=== PATIENT | female | born 1995 | race American Indian/Alaskan Native ===

== ENCOUNTER 2017-07-26 14:16 | Inpatient (IN) | payer MEDICAID, OTHER ==
[2017-07-26 15:39] LABS: BASO % 0.5 % (0.0-2.0); EOS # 0.1 K/uL (0.0-0.7); EOS % 1.1 % (0.0-4.0); HEMOGLOBIN 11.4 g/dL (11.0-16.0); LYMPH # 1.7 K/uL (1.0-4.3); MEAN CELL VOLUME 73.9 fL (81.0-99.0); MEAN CORPUSCULAR HEMOGLOBIN 24.2 pg (27.0-31.0); MEAN CORPUSCULAR HGB CONC 32.8 g/dL (33.0-37.0); MEAN PLATELET VOLUME 8.3 fL (7.2-11.7); MONO # 0.9 K/uL (0.0-0.8); MONO % 10.8 % (0.0-10.0); NEUT # 5.3 K/uL (1.8-7.0); NEUT % 66.6 % (50.0-75.0); NRBC % 0.1 % (0.0-2.0); RBC 4.71 Mil/uL (3.80-5.20); RED CELL DISTRIBUTION WIDTH 13.2 % (11.5-14.5); WHITE BLOOD COUNT 7.9 K/uL (4.8-10.8)
[2017-07-26] MEDS ORDERED: Sodium Chloride 0.9% 1,000 ML IV ONE (15:43)
[2017-07-26 15:49] LABS: HCG,QUALITATIVE URINE POSITIVE (NEGATIVE)
--- NOTE | 2017-07-26 15:52 | C.PDOC ---
History Of Present Illness 22 yr old female presents to the ER stating she took a home test which resulted positive. Patient report she missed her June period. Patient reports of cramping and spotting earlier. Denies fever, chills, nausea, vomiting , dysuria, back pain, headache, weakness or numbness. By date patient is approximately 6 weeks . Time Seen by Provider: 07/26/17 14:40 Chief Complaint (Nursing): Female Genitourinary History Per: Patient History/Exam Limitations: no limitations Onset/Duration Of Symptoms: Days Past Medical History Reviewed: Historical Data, Nursing Documentation, Vital Signs Vital Signs: Last Vital Signs Temp 98.6 F 07/26/17 14:25 Pulse 95 H 07/26/17 14:25 Resp 18 07/26/17 14:25 BP 116/74 07/26/17 14:25 Pulse Ox 99 07/26/17 15:56 Family History: States: No Known Family Hx - Social History Hx Alcohol Use: Yes Hx Substance Use: No - Immunization History Hx Tetanus Toxoid Vaccination: No Hx Influenza Vaccination: No Hx Pneumococcal Vaccination: No Review Of Systems Except As Marked, All Systems Reviewed And Found Negative. Constitutional: Negative for: Fever, Chills Gastrointestinal: Positive for: Abdominal Pain (cramping). Negative for: Nausea , Vomiting Genitourinary: Positive for: Vaginal Bleeding (spotting). Negative for: Dysuria Musculoskeletal: Negative for: Back Pain Neurological: Negative for: Weakness, Numbness, Headache Physical Exam - Physical Exam Appears: Non-toxic, No Acute Distress Skin: Warm, Dry, No Rash Head: Atraumatic, Normacephalic Eye(s): bilateral: Normal Inspection, PERRL, EOMI Oral Mucosa: Moist Cardiovascular: Rhythm Regular, No Murmur Respiratory: Normal Breath Sounds, No Rales, No Rhonchi, No Stridor, No Wheezing Gastrointestinal/Abdominal: Normal Exam, Soft, No Tenderness, No Guarding, No Rebound Extremity: Normal ROM, No Swelling Neurological/Psych: Oriented x3, Normal Speech, Normal Motor ED Course And Treatment - Laboratory Results Result Diagrams: 07/26/17 15:30 07/26/17 15:01 O2 Sat by Pulse Oximetry: 99 (RA) Pulse Ox Interpretation: Normal Medical Decision Making Medical Decision Making: PLAN: * US - Transvaginal * CBC * CMP * HCG * Urinalysis * Sodium Chloride IV Disposition Counseled Patient/Family Regarding: Studies Performed, Diagnosis - Disposition Disposition: HOME/ ROUTINE Disposition Time: 17:37 Condition: STABLE Instructions: Threatened Miscarriage (ED) Forms: [facility] (Iranian), General Discharge Instructions - POA Present On Arrival: None - Clinical Impression Clinical Impression: Threatened - Scribe Statement The provider has reviewed the documentation as recorded by the Scribe Елена Hernandez Provider Attestation: All medical record entries made by the Betsyibe were at my direction and personally dictated by me. I have reviewed the chart and agree that the record accurately reflects my personal performance of the history, physical exam, medical decision making, and the department course for this patient. I have also personally directed, reviewed, and agree with the discharge instructions and disposition. Physician Patient Turnover Patient Signed Over To: Riki Choudhary Handoff Comments: pending US results
[2017-07-26 15:57] LABS: SQUAMOUS EPITHIAL 4 /hpf (0-5); URINE BACTERIA RARE (<OCC); URINE BILIRUBIN NEGATIVE (NEGATIVE); URINE BLOOD 1+ (NEGATIVE); URINE CLARITY Clear (Clear); URINE COLOR Yellow (YELLOW); URINE GLUCOSE (UA) NORMAL (Normal); URINE LEUKOCYTE ESTERASE 1+ Leu/uL (Negative); URINE NITRATE NEGATIVE (NEGATIVE); URINE PROTEIN NEGATIVE (NEGATIVE); URINE UROBILINOGEN NORMAL mg/dL (0.2-1.0)
[2017-07-26 16:02] LABS: ALB/GLOB RATIO 1.1 (1.0-2.1); ALBUMIN 4.1 g/dL (3.5-5.0); ALT/SGPT 18 U/L (9-52); AST/SGOT 37 U/L (14-36); BLOOD UREA NITROGEN 10 mg/dL (7-17); CALCIUM 8.4 mg/dl (8.6-10.4); GFR AFRICAN-AMERICAN > 60; GFR NON-AFRICAN AMERICAN > 60
--- NOTE | 2017-07-26 17:57 | US ---
Indication: , 6 weeks and spotting Technique: A real-time transabdominal pelvic ultrasound was performed. In addition, a transvaginal pelvic ultrasound was necessary to better depict pelvic anatomy. Comparison: None available. Findings: The uterus measures approximately 7.8 x 4.2 x 4.8 cm. Anteverted. Endometrium measures approximately 2.2 cm containing heterogeneous hypo echogenicity possibly debris/ blood products. An intrauterine gestational sac is not identified. Suspected ectopic in the right adnexal region with evidence of yolk sac measuring approximately 3 mm. [place]-rump length approximately 0.4 cm consistent with gestational age 6 weeks 0 days. Gestational sac measurement 1.4 cm consistent with 5 weeks 4 days. heart rate measures approximately 131.2 beats per minute. The right ovary measures approximately 2.9 x 2.1 x 3.0 cm. The left ovary measures approximately 3.5 x 2.6 x 2.8 cm and contains evidence of corpus luteal cyst measuring approximately 2.2 x 1.6 x 1.9 cm. Blood flow is demonstrated to the left ovary. Small pelvic free fluid with evidence of internal echoes. Impression: Suspected ectopic in the right adnexal region with evidence of yolk sac measuring approximately 3 mm. [place]-rump length approximately 0.4 cm consistent with gestational age 6 weeks 0 days. Gestational sac measurement 1.4 cm consistent with 5 weeks 4 days. heart rate measures approximately 131.2 beats per minute. Correlate clinically. Thickened endometrium with evidence of heterogeneous hypo echogenicity possibly debris/blood products. An intrauterine gestational sac is not identified. Probable 2.2 cm left ovarian corpus luteal cyst. Small pelvic free fluid with evidence of internal echoes. Findings discussed with Dr. Choudhary on 07/26/17 at 5:52 p.m.
[2017-07-26 18:29] VITALS: O2SAT 100
[2017-07-26] MEDS ORDERED: Lactated Ringer's 1,000 ML ONE (19:37)
[2017-07-26] MEDS ORDERED: Lactated Ringer's 1,000 ML IV SCH (19:45)
[2017-07-26] MEDS ORDERED: cefOXitin IV 2 gm in Saline 2 GM in Sodium Chloride 0.9% 50 ML IV SCH (19:45)
--- NOTE | 2017-07-26 19:45 | CP.PCM.HP ---
History of Present Illness - History of Present Illness History of Present Illness: 22 y.o. , LMP end 05/2017, c/o generalized lower abdominal pain, crampy "like my period", onset 07/25/17. Worsening overnight until earlier today, pain scale 8/10 prompted her to come to E.D. for evaluation. In E.D. ultrasound performed revealed yolk sac 3 mm (+) FP wit CRL c/w 6w 0d and gestationsal sac c /w 5w4d; (+) cardiac activity 132 bpm. quant HCG 20,063 IU; (+) free fluid. Currently, patient reports pain is no worse. 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 (+) h/o chlamydia 2010. Denies H/O myoma or abnormal Pap PMH: denies PSH: denies NKDA Meds: none Soc Hx: (+) Black 'n mild - 2/day; (+) marijuana - 2/day; very occ EtOH. Lives with her mother; currently unemployed - last worked 05/2017 Fam Hx: Mother alive 46 - mild HTN. Father alive 47 - DM. No fam h/o cancer Present on Admission - Present on Admission Any Indicators Present on Admission: No Review of Systems - Review of Systems All systems: reviewed and no additional remarkable complaints except - Genitourinary Genitourinary: As Per HPI - Menstruation Menstruation: As Per HPI Past Patient History - Infectious Disease Hx of Infectious Diseases: None - Tetanus Immunizations Tetanus Immunization: Unknown - Past Social History Smoking Status: Light Smoker < 10 Cigarettes Daily Alcohol: Occasional Home Situation {Lives}: With Family Domestic Violence: Negative - CARDIAC Hx Cardiac Disorders: No - PULMONARY Hx Respiratory Disorders: No - NEUROLOGICAL Hx Neurological Disorder: No - HEENT Hx HEENT Problems: No - RENAL Hx Chronic Kidney Disease: No - ENDOCRINE/METABOLIC Hx Endocrine Disorders: No - HEMATOLOGICAL/ONCOLOGICAL Hx Blood Disorders: No - INTEGUMENTARY Hx Dermatological Problems: No - MUSCULOSKELETAL/RHEUMATOLOGICAL Hx Musculoskeletal Disorders: No - GASTROINTESTINAL Hx Gastrointestinal Disorders: No - GENITOURINARY/GYNECOLOGICAL Hx Sexually Transmitted Disorders: Yes ( chlamydia) LMP:: 05/2017 : 1 Para: 0 Termination of : 0 - PSYCHIATRIC Hx Psychophysiologic Disorder: No Hx Substance Use: No - SURGICAL HISTORY Hx Surgeries: No - ANESTHESIA Hx Anesthesia: No Meds Allergies/Adverse Reactions: Allergies Allergy/AdvReac Type Severity Reaction Status Date / Time No Known Allergies Allergy Verified 07/26/17 14:28 Physical Exam - Constitutional Appears: Well, Non-toxic, No Acute Distress - Head Exam Head Exam: NORMOCEPHALIC - Eye Exam Eye Exam: Normal appearance - Neck Exam Neck exam: Positive for: Full Rom - Respiratory Exam Respiratory Exam: NORMAL BREATHING PATTERN - Cardiovascular Exam Cardiovascular Exam: REGULAR RHYTHM - GI/Abdominal Exam GI & Abdominal Exam: Soft ((+) RLQ tenderness to palpation, no rebound tenderness or guarding) - Extremities Exam Extremities exam: Positive for: full ROM, normal inspection - Neurological Exam Neurological exam: Alert, Normal Gait, Oriented x3 - Psychiatric Exam Psychiatric exam: Normal Affect, Normal Mood - Skin Skin Exam: Dry Results - Vital Signs Recent Vital Signs: Last Vital Signs Temp 97.9 F 07/26/17 18:28 Pulse 93 H 07/26/17 18:28 Resp 18 07/26/17 18:28 BP 103/65 07/26/17 18:28 Pulse Ox 100 07/26/17 18:28 - Labs Result Diagrams: 07/26/17 15:30 07/26/17 15:01 Labs: Laboratory Results - last 24 hr 07/26/17 07/26/17 07/26/17 15:01 15:30 15:30 WBC 7.9 RBC 4.71 Hgb 11.4 Hct 34.8 MCV 73.9 L MCH 24.2 L MCHC 32.8 L RDW 13.2 Plt Count 360 MPV 8.3 Neut % (Auto) 66.6 Lymph % (Auto) 21.0 [place] % (Auto) 10.8 H Eos % (Auto) 1.1 Baso % (Auto) 0.5 Neut # 5.3 Lymph # 1.7 [place] # 0.9 H Eos # 0.1 Baso # 0.0 Sodium 130 L Potassium 3.5 L Chloride 101 Carbon Dioxide 22 Anion Gap 11 BUN 10 Creatinine 0.6 L Est GFR ( Amer) > 60 Est GFR (Non-Af Amer) > 60 Random Glucose 84 Calcium 8.4 L Total Bilirubin 0.5 AST 37 H ALT 18 Alkaline Phosphatase 45 Total Protein 7.7 Albumin 4.1 Globulin 3.7 Albumin/Globulin Ratio 1.1 Beta HCG, Quant Urine Color Yellow Urine Clarity Clear Urine pH 6.0 Ur Specific [place] 1.025 Urine Protein Negative Urine Glucose (UA) Normal Urine Ketones Negative Urine Blood 1+ H Urine Nitrate Negative Urine Bilirubin Negative Urine Urobilinogen Normal Ur Leukocyte Esterase 1+ H Urine WBC (Auto) 9 H Urine RBC (Auto) 5 H Ur Squamous Epith Cells 4 Urine Bacteria Rare Urine HCG, Qual Positive Blood Type Antibody Screen 07/26/17 07/26/17 15:30 17:54 WBC RBC Hgb Hct MCV MCH MCHC RDW Plt Count MPV Neut % (Auto) Lymph % (Auto) [place] % (Auto) Eos % (Auto) Baso % (Auto) Neut # Lymph # [place] # Eos # Baso # Sodium Potassium Chloride Carbon Dioxide Anion Gap BUN Creatinine Est GFR ( Amer) Est GFR (Non-Af Amer) Random Glucose Calcium Total Bilirubin AST ALT Alkaline Phosphatase Total Protein Albumin Globulin Albumin/Globulin Ratio Beta HCG, Quant . Urine Color Urine Clarity Urine pH Ur Specific [place] Urine Protein Urine Glucose (UA) Urine Ketones Urine Blood Urine Nitrate Urine Bilirubin Urine Urobilinogen Ur Leukocyte Esterase Urine WBC (Auto) Urine RBC (Auto) Ur Squamous Epith Cells Urine Bacteria Urine HCG, Qual Blood Type B POSITIVE Antibody Screen Negative Assessment & Plan - Assessment and Plan (Free Text) Assessment: 22 y.o P0, right ectopic - not a candidate for methotrexate ((+) cardiac activity, HGC > 15,000 IU). To this end D/W patient surgical management : laparoscopy versus laparotomy, with possible removal of fallopian tube. R/C discussed. Patient expressed an understanding and agrees. No questions offered. Consents signed, dated, witnessed, and placed in chart. Patient ate beef sausage between 1530 and 1600 hours. Patient otherwise in stable condition. 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 - Date & Time Date: 07/26/17 Time: 19:54
[2017-07-26] MEDS ORDERED: cefOXitin IV 1 gm in Dextrose 0 GM/0 ML BAG IVPB ONE (19:51)
[2017-07-26] MEDS ORDERED: Bupivacaine HCl 0.25% PF (10 ml) Inj ONE (19:52)
[2017-07-26] MEDS ORDERED: Lidocaine 1% Inj (20ml) ONE (19:52)
[2017-07-26] MEDS: cefOXitin IV 2 gm in Saline 2 GM in Sodium Chloride 0.9% 100 ML IV SCH (19:52)
[2017-07-26] MEDS ORDERED: Midazolam 2 MG/2 ML VIAL ONE (20:17)
[2017-07-26] MEDS ORDERED: Succinylcholine Chloride 20 mg/ml Syr (5 ml) IV ONE (20:18)
[2017-07-26] MEDS ORDERED: Rocuronium 10 mg/ml (5 ml) ONE (20:18)
[2017-07-26] MEDS ORDERED: Propofol 10 mg/ml Inj (20 ML) ONE (20:20)
[2017-07-26] MEDS ORDERED: Lactated Ringer's 1,000 ML IV ONE ×4 (20:30→23:30)
[2017-07-26] MEDS ORDERED: Neostigmine Methylsulfate 3mg/3ml Syringe IV ONE (21:47)
[2017-07-26] MEDS ORDERED: Oxycodone/Acetaminophen 5/325 mg Tab PO PRN (22:27)
--- NOTE | 2017-07-26 22:43 | PCM.SURG1 ---
Surgeon's Initial Post Op Note - Surgeon's Notes Surgeon: Chasity Santos MD Retail Associate Manager Bilingual: Terrell Hopper MD Type of Anesthesia: General Endo Anesthesia Administered By: Kerrie Merida MD Pre-Operative Diagnosis: right ectopic Operative Findings: EUA: small AV uterus; no adnexal masses appreciated. At laparoscopy: normal uterus; normal left fallopian; normal ovaries bilaterally. Approx 100cc hemoperitoneum; no active bleeding. Right ectopic . Multiple pelvic adhesions: involving left fallopian tube; posterior aspect of uterus to cul-de-sac; and loops of bowel to left lateral abdominal wall. Powder burn endometriotic spots primarily on left lateral abdominal wall. Post-Operative Diagnosis: Same; pelvic adhesions; endometriosis Operation Performed: Right salpingectomy Specimen/Specimens Removed: Right fallopian tube Estimated Blood Loss: EBL {In ML}: 100 (U.O. 100 mL; IVFs 1,450 mL LR) Blood Products Given: N/A Drains Used: No Drains Date of Surgery/Procedure: 07/26/17 Time of Surgery/Procedure: 22:44
[2017-07-27] MEDS: cefOXitin IV 2 gm in Saline 2 GM in Sodium Chloride 0.9% 100 ML IV SCH (04:12)
[2017-07-27 07:39] LABS: BASO % 0.3 % (0.0-2.0); HEMOGLOBIN 10.6 g/dL (11.0-16.0); LYMPH # 0.8 K/uL (1.0-4.3); LYMPH % 7.2 % (20.0-40.0); MEAN CELL VOLUME 73.7 fL (81.0-99.0); MEAN CORPUSCULAR HGB CONC 32.6 g/dL (33.0-37.0); MEAN PLATELET VOLUME 8.8 fL (7.2-11.7); MONO # 0.2 K/uL (0.0-0.8); MONO % 1.7 % (0.0-10.0); NEUT % 90.8 % (50.0-75.0); PLATELET COUNT 324 K/uL (130-400); RBC 4.42 Mil/uL (3.80-5.20); RED CELL DISTRIBUTION WIDTH 13.6 % (11.5-14.5)
--- NOTE | 2017-07-27 07:57 | CP.PCM.DIS ---
Provider - Provider Date of Admission: 07/26/17 18:09 Attending physician: Chasity Santos MD Time Spent in preparation of Discharge (in minutes): 15 Diagnosis - Discharge Diagnosis (1) Ectopic Status: Acute Hospital Course - Lab Results Lab Results: Most Recent Lab Values WBC 7.9 K/uL (4.8-10.8) 07/26/17 15:30 RBC 4.71 Mil/uL (3.80-5.20) 07/26/17 15:30 Hgb 11.4 g/dL (11.0-16.0) 07/26/17 15:30 Hct 34.8 % (34.0-47.0) 07/26/17 15:30 MCV 73.9 fL (81.0-99.0) L 07/26/17 15:30 MCH 24.2 pg (27.0-31.0) L 07/26/17 15:30 MCHC 32.8 g/dL (33.0-37.0) L 07/26/17 15:30 RDW 13.2 % (11.5-14.5) 07/26/17 15:30 Plt Count 360 K/uL (130-400) 07/26/17 15:30 MPV 8.3 fL (7.2-11.7) 07/26/17 15:30 Neut % (Auto) 66.6 % (50.0-75.0) 07/26/17 15:30 Lymph % (Auto) 21.0 % (20.0-40.0) 07/26/17 15:30 [place] % (Auto) 10.8 % (0.0-10.0) H 07/26/17 15:30 Eos % (Auto) 1.1 % (0.0-4.0) 07/26/17 15:30 Baso % (Auto) 0.5 % (0.0-2.0) 07/26/17 15:30 Neut # 5.3 K/uL (1.8-7.0) 07/26/17 15:30 Lymph # 1.7 K/uL (1.0-4.3) 07/26/17 15:30 [place] # 0.9 K/uL (0.0-0.8) H 07/26/17 15:30 Eos # 0.1 K/uL (0.0-0.7) 07/26/17 15:30 Baso # 0.0 K/uL (0.0-0.2) 07/26/17 15:30 Sodium 130 mmol/L (132-148) L 07/26/17 15:01 Potassium 3.5 mmol/L (3.6-5.2) L 07/26/17 15:01 Chloride 101 mmol/L (98-107) 07/26/17 15:01 Carbon Dioxide 22 mmol/L (22-30) 07/26/17 15:01 Anion Gap 11 (10-20) 07/26/17 15:01 BUN 10 mg/dL (7-17) 07/26/17 15:01 Creatinine 0.6 mg/dL (0.7-1.2) L 07/26/17 15:01 Est GFR ( Amer) > 60 07/26/17 15:01 Est GFR (Non-Af Amer) > 60 07/26/17 15:01 POC Glucose (mg/dL) 85 mg/dL (65-110) 07/26/17 19:47 Random Glucose 84 mg/dL (65-105) 07/26/17 15:01 Calcium 8.4 mg/dl (8.6-10.4) L 07/26/17 15:01 Total Bilirubin 0.5 mg/dL (0.2-1.3) 07/26/17 15:01 AST 37 U/L (14-36) H 07/26/17 15:01 ALT 18 U/L (9-52) 07/26/17 15:01 Alkaline Phosphatase 45 U/L (38-126) 07/26/17 15:01 Total Protein 7.7 g/dL (6.3-8.3) 07/26/17 15:01 Albumin 4.1 g/dL (3.5-5.0) 07/26/17 15:01 Globulin 3.7 gm/dL (2.2-3.9) 07/26/17 15:01 Albumin/Globulin Ratio 1.1 (1.0-2.1) 07/26/17 15:01 Beta HCG, Quant 57567.00 mIU/ML 07/26/17 15:30 Urine Color Yellow (YELLOW) 07/26/17 15:30 Urine Clarity Clear (Clear) 07/26/17 15:30 Urine pH 6.0 (5.0-8.0) 07/26/17 15:30 Ur Specific [place] 1.025 (1.003-1.030) 07/26/17 15:30 Urine Protein Negative mg/dL (NEGATIVE) 07/26/17 15:30 Urine Glucose (UA) Normal mg/dL (Normal) 07/26/17 15:30 Urine Ketones Negative mg/dL (NEGATIVE) 07/26/17 15:30 Urine Blood 1+ (NEGATIVE) H 07/26/17 15:30 Urine Nitrate Negative (NEGATIVE) 07/26/17 15:30 Urine Bilirubin Negative (NEGATIVE) 07/26/17 15:30 Urine Urobilinogen Normal mg/dL (0.2-1.0) 07/26/17 15:30 Ur Leukocyte Esterase 1+ [place]/uL (Negative) H 07/26/17 15:30 Urine WBC (Auto) 9 /hpf (0-5) H 07/26/17 15:30 Urine RBC (Auto) 5 /hpf (0-3) H 07/26/17 15:30 Ur Squamous Epith Cells 4 /hpf (0-5) 07/26/17 15:30 Urine Bacteria Rare (<OCC) 07/26/17 15:30 Urine HCG, Qual Positive (NEGATIVE) 07/26/17 15:30 Blood Type B POSITIVE 07/26/17 17:54 Antibody Screen Negative 07/26/17 17:54 - Hospital Course Hospital Course: Patient presents to er with abdominal pain.Found to have an ectopc on right side.Ptaient taken to the OR by Dr santos and underwent laparsocopic right salpingectomy Her post op course was uncomplicated Shew as discharge on post op day 1 patient advsied to follow up in clinic in 2 weeks Discharge Exam - Head Exam Head Exam: NORMOCEPHALIC - Respiratory Exam Respiratory Exam: Clear to PA & Lateral, NORMAL BREATHING PATTERN - Cardiovascular Exam Cardiovascular Exam: REGULAR RHYTHM - GI/Abdominal Exam GI & Abdominal Exam: Normal Bowel Sounds, Soft. absent: Rebound - Back Exam Back exam: absent: CVA tenderness (L), CVA tenderness (R) - Psychiatric Exam Psychiatric exam: Normal Affect, Normal Mood - Skin Skin Exam: Normal Color Discharge Plan - Discharge Medications Prescriptions: Ibuprofen [Motrin Tab] 600 mg PO Q6 PRN #30 tab PRN Reason: Pain, Mild (1-3) oxyCODONE/Acetaminophen [Percocet 5/325 mg Tab] 1 tab PO Q4H PRN #10 tab PRN Reason: Pain, Moderate (4-7) - Follow Up Plan Condition: STABLE Disposition: HOME/ ROUTINE Instructions: Salpingectomy (GEN)
[2017-07-27 09:10] LABS: LYMPHOCYTE 10 % (20-40); MONOCYTE 2 % (0-10); NEUTROPHIL 88 % (50-75); PLATELET ESTIMATE NORMAL (NORMAL); TOTAL CELLS COUNTED 100
[2017-07-27 09:11] LABS: HYPOCHROMIC SLIGHT; OVALOCYTES SLIGHT
[2017-07-27] MEDS ORDERED: Simethicone 80 mg Chewtab PO SCH (10:00)
[2017-07-27 10:04] VITALS: BP 91/64; PULSE 86; RESP 18; TEMP 97.4
--- NOTE | 2017-07-27 11:05 | OP ---
PROCEDURE DATE: 07/26/2017 SURGEON: Chasity Santos MD HADOOP ENGINEER: Terrell Hopper MD ANESTHESIOLOGIST: Kerrie Merida MD ANESTHESIA TYPE: General with endotracheal intubation. PREOPERATIVE DIAGNOSIS: Right ectopic . POSTOPERATIVE DIAGNOSES: Right ectopic , pelvic adhesions. OPERATIVE FINDINGS: 1. Examination under anesthesia revealed a small anteverted uterus with no adnexal masses appreciated. 2. At laparoscopy, normal uterus, normal left fallopian tube, normal ovaries bilaterally and a right ectopic encompassing from the area of the ampullary region through the distal end of the right fallopian tube. Multiple pelvic adhesions involving the left fallopian tube encasing the left ovary in some of these adhesions involving also the posterior aspect of the uterus to the cul-de-sac and involving aspects of the loops of bowel to the left lateral anterior wall. There is right ectopic as described above, approximate 100 mL hemoperitoneum with no active bleeding noted. OPERATION PERFORMED: Right salpingectomy. SPECIMEN REMOVED: Right fallopian tube. ESTIMATED BLOOD LOSS: 100 mL. URINE OUTPUT: 100 mL. INTRAVENOUS FLUIDS: 1400 mL of lactated Ringer's. Patient received Mefoxin 2 g. COMPLICATIONS: None. DESCRIPTION OF PROCEDURE: The patient was taken to the operating room after having obtained informed consent for the anticipated procedure. This included discussion of possible risks, complications including, but not limited to infection requiring antibiotics, hemorrhage requiring blood transfusion, repair of any damage to internal organs. Patient expressed understanding, her questions were all answered and consents were signed, dated, witnessed and placed in the chart. The patient was then escorted to the operating room. On route to the operating room, she received Mefoxin 2 g by IV piggyback. In the operating room, she was placed in the operating room table in supine position and general anesthesia with endotracheal intubation was administered without incident. She was immediately positioned in the Cristino stirrups. The vagina was prepped and Perez catheter was inserted under sterile conditions and the abdomen was subsequently prepped and she was draped in the usual sterile fashion. Prior to actually placing the Perez, examination under anesthesia was performed with findings as above. Then using a weighted speculum, this was placed in the posterior vaginal vault. Using a Frye retractor, the cervix was visualized and it was grasped on the anterior lip using single-toothed tenaculum. The uterus was able to be sounded safely and using an Follett tenaculum as an uterine manipulator, this was inserted without incident. Attention was then directed to the patient's abdomen. A stab wound was made in the umbilical fold using an 11-blade scalpel. The Veress needle was inserted. Veress test was performed and safe placement was confirmed as there was no retrieval of blood, feces or urine. Pneumoperitoneum was created. The incision was then extended to allow 5-mm trocar. This was done without incident. The camera was inserted and visualization of the pelvic findings was noted as above. The decision was then made to place a 5-mm port in the right lower quadrant. This was done under direct visualization using a blunt probe and assessing the pelvic organs with the findings as above, Decision was then made to introduce a 12-mm trocar in the left lower quadrant. This was done under direct visualization without incident. Using the LigaSure, right salpingectomy was performed to remove two-third of the fallopian tube. Specimen was placed in the EndoCatch and removed under direct visualization and submitted to pathology. Examination of the rest of the upper abdomen revealed normal findings with no evidence of perihepatic adhesions. Suction irrigation was performed and hemostasis was assured. Using the Paul-Antonio apparatus, the 12-mm port had the fascia reapproximated using 2-0 Vicryl. All of the instruments were removed under direct visualization. Hemostasis was assured. The skin was reapproximated using 4-0 Vicryl in subcuticular manner on both ports as well as interrupted stitch in the umbilical fold. Steri-Strips were applied and a dressing was applied. Attention was then directed to the vagina. Under direct visualization, the acorn uterine manipulator was removed. There was noted to be bleeding from the anterior lip of the cervix in the area of the tenaculum site. Using 2-0 chromic in a [id number] stitch was placed. There was still a little bit oozing and therefore, Monsel's placed with pressure on the anterior cervix. Hemostasis was assured. All the instruments were removed. The patient was extubated. She was allowed to arise from anesthesia and transferred to the recovery room in stable condition. Chasity MD [facility] # [id number]
== END 2017-07-27 14:00 | disposition home or self-care (01) | DRG 777 ==
LOC: C.ER 14:16 → C.9E 18:09 → C.4M 20:51
PROVIDERS: ADMIT Obstetrics & Gynecology; ATTEND Obstetrics & Gynecology
PROC: 10T24ZZ Resection of Products of Conception, Ectopic, Percutaneous Endoscopic Approach (ICD-10-PCS; 2017-07-26)
PROC: 0UB54ZZ Excision of Right Fallopian Tube, Percutaneous Endoscopic Approach (ICD-10-PCS; principal; 2017-07-26 18:30)
DX: O00.101 Right tubal pregnancy without intrauterine pregnancy (principal); O99.321 Drug use complicating pregnancy, first trimester; F12.90 Cannabis use, unspecified, uncomplicated; O99.331 Smoking (tobacco) complicating pregnancy, first trimester; F17.210 Nicotine dependence, cigarettes, uncomplicated; Z3A.01 Less than 8 weeks gestation of pregnancy